=== PATIENT | female | born 1995 | race Two or more races ===

== ENCOUNTER 2016-08-14 19:21 | Emergency (ER) | payer OTHER ==
[~2016-08-14] VITALS: Ht 165.1 cm; Wt 74.4 kg
[2016-08-14 19:39] VITALS: BP 106/57
--- NOTE | 2016-08-15 01:20 | REP ---
Clinical: Trauma. Technique: AP, lateral, bilateral oblique views right wrist . Findings: The carpal bones, surrounding osseous structures, soft tissues, and joint spaces are normal. There is no evidence for acute fracture or dislocation. No subcutaneous emphysema or radiodense foreign body. Impression: Normal wrist series. No acute fracture or dislocation Signed by Cain Henning MD 08/15/2016 01:12 A
== END 2016-08-14 22:05 | disposition home or self-care (01) ==
LOC: M ED 20:34
DX: M25.531 Pain in right wrist (principal)

== ENCOUNTER 2017-02-14 21:40 | Emergency (ER) | payer OTHER ==
[~2017-02-14] VITALS: Ht 165.1 cm; Wt 72.7 kg
[2017-02-14 21:40] VITALS: BP 122/67
[2017-02-15] MEDS ORDERED: BACT800T5 PO (00:12)
[2017-02-15] MEDS ORDERED: CYCLOBENZAPRINE 10 MG TAB PO ONE (00:15)
[2017-02-15] MEDS ORDERED: BACTRIM 160MG/800MG DS TAB PO ONE (00:15)
[2017-02-15] MEDS ORDERED: PHENAZOPYRIDINE 100 MG TAB PO ONE (00:15)
== END 2017-02-15 00:25 | disposition home or self-care (01) ==
LOC: M ED 21:40
DX: N39.0 Urinary tract infection, site not specified (principal); F17.210 Nicotine dependence, cigarettes, uncomplicated